=== PATIENT | female | born 1980 | race Caucasian/White ===

== ENCOUNTER 2018-12-23 07:08 | Emergency (ER) | payer OTHER ==
[~2018-12-23] VITALS: Ht 162.6 cm; Wt 151.7 kg
[2018-12-23] MEDS ORDERED: ALBUTEROL SULFATE 2.5 MG/3 ML NPPB ONE (08:00)
--- NOTE | 2018-12-23 08:00 | NUR ---
PT MOVED TO ROOM
[2018-12-23] MEDS ORDERED: ALBUTEROL SULFATE 2.5 MG/3 ML ONE (08:17)
--- NOTE | 2018-12-23 08:23 | NUR ---
RT AT BEDSIDE AND RECEIVING BREATHING TX
[2018-12-23 08:28] VITALS: BP 128/76
--- NOTE | 2018-12-23 09:03 | NUR ---
PT FEELS BETTER SINCE BREATHING TX
== END 2018-12-23 09:15 | disposition home or self-care (01) ==
LOC: ED 09:12
DX: J45.21 Mild intermittent asthma with (acute) exacerbation (principal); J45.909 Unspecified asthma, uncomplicated
CPT/HCPCS: 71046; 93005; 94640; 99283; J7512; J7613